=== PATIENT | male | born 1950 ===

== ENCOUNTER → 2018-11-08 | Day surgery (SDC) | payer MEDICARE ==
[~2018-11-08] MED LIST: Lactated Ringer's 500 ML IV ONE; Propofol 10 mg/ml Inj (20 ML) ONE
[2018-11-08 08:13] VITALS: BMI 28.1
[2018-11-08 09:43] VITALS: BP 110/72; PULSE 73; RESP 18; TEMP 96.7; O2SAT 97
== END | disposition home or self-care (01) ==
LOC: H.ENDO 07:30
PROVIDERS: ATTEND Internal Medicine Gastroenterology
DX: Z12.11 Encounter for screening for malignant neoplasm of colon (principal); J45.909 Unspecified asthma, uncomplicated; K64.8 Other hemorrhoids
CPT/HCPCS: 45378; J2001; J2704; J7120